=== PATIENT | male | born 1940 | race Caucasian/White ===

== ENCOUNTER 2018-08-04 10:07 | Inpatient (IN) ==
[2018-08-04] MEDS ORDERED: DILTIAZEM 50 MG/10 ML VIAL IV STA (10:35)
[2018-08-04 10:51] LABS: Basophils % 0.5 % (0.0-0.8); Eosinophils # 0.1 10*3/uL (0.0-0.87); Eosinophils % 0.6 % (0.00-10.9); Hematocrit 48.9 VOL% (42.0-52.0); Hemoglobin 16.8 GM/DL (14.0-18.0); Immature Granulocytes % 0.5 %; Immature Granulocytes Absolute 0.04 #; Lymphocytes # 1.9 10*3/uL (1.4-4.0); Lymphocytes % 21.2 % (21.2-54.2); Mean Corpuscular HGB Conc 34.4 GM/DL (32-36); Mean Corpuscular Hemoglobin 31 PG (27-34); Mean Corpuscular Volume 89.2 FL (87-102); Mean Platelet Volume 10.7 FL (9.6-12.0); Monocytes # 0.6 10*3/uL (0.11-0.8); Monocytes % 7.1 % (1.7-12.7); Neutrophils # 6.2 10*3/uL (1.4-7.4); Neutrophils % 70.1 % (38.7-73.9); Platelet Count 197 T/CUMM (130-400); Red Blood Count 5.48 MC/CUMM (3.8-5.5); White Blood Count 8.9 T/CUMM (4-12)
[2018-08-04] MEDS ORDERED: DILTIAZEM INJ 100 MG in SODIUM CHLORIDE 0.9% 100 ML IV SCH (11:00)
[2018-08-04 11:05] LABS: Partial Thromboplastin Time 27.5 SECS (0-40)
[2018-08-04 11:30] LABS: Albumin 3.6 G/DL (3.4-5.0); Bilirubin,Total 0.5 MG/DL (0.2-1.0); Osmolality,Calculated 279.4 MOS/KG (273-304); Potassium 3.7 MMOL/L (3.5-5.1); Total Protein 7.2 G/DL (6.4-8.3)
[2018-08-04 13:22] LABS: Risk Ratio 3.27; VLDL CHOLESTEROL 25.8 MG/DL
[2018-08-04] MEDS ORDERED: INFLUENZA VIRUS VACCINE 0.5 ML SYRINGE IM ONE (14:13)
[2018-08-04] MEDS ORDERED: POTASSIUM CHLORIDE 20 MEQ TABLET PO ONE (14:16)
[2018-08-04] MEDS: SODIUM CHLORIDE 0.45% 1,000 ML IV SCH ×2 (16:17→20:41)
[2018-08-04] MEDS: DILTIAZEM 30 MG TABLET PO SCH ×2 (17:37→20:41)
[2018-08-04] MEDS: ENOXAPARIN 100 MG/ML SYRINGE SUBCUT SCH (17:37)
[2018-08-04] MEDS: PHENAZOPYRIDINE 95 MG TABLET PO SCH (17:37)
[2018-08-04] MEDS: DORZOLAMIDE/TIMOLOL OPH SOLN 10 ML BOTTLE LEFT EYE SCH (20:42)
[2018-08-04] MEDS ORDERED: LATANOPROST 0.005% OPH SOLN 2.5 ML BOTTLE LEFT EYE SCH (21:00)
[2018-08-05] MEDS: ENOXAPARIN 100 MG/ML SYRINGE SUBCUT SCH (04:46)
[2018-08-05 06:09] LABS: Basophils % 0.5 % (0.0-0.8); Eosinophils # 0.1 10*3/uL (0.0-0.87); Eosinophils % 1.6 % (0.00-10.9); Hematocrit 42.3 VOL% (42.0-52.0); Hemoglobin 14.3 GM/DL (14.0-18.0); Immature Granulocytes % 0.3 %; Immature Granulocytes Absolute 0.02 #; Lymphocytes # 2.4 10*3/uL (1.4-4.0); Lymphocytes % 31.5 % (21.2-54.2); Mean Corpuscular HGB Conc 33.8 GM/DL (32-36); Mean Corpuscular Hemoglobin 31 PG (27-34); Mean Corpuscular Volume 91.8 FL (87-102); Mean Platelet Volume 11.5 FL (9.6-12.0); Monocytes # 0.5 10*3/uL (0.11-0.8); Neutrophils # 4.6 10*3/uL (1.4-7.4); Neutrophils % 59.1 % (38.7-73.9); Platelet Count 168 T/CUMM (130-400); Red Blood Count 4.61 MC/CUMM (3.8-5.5); Red Cell Distribution Width 13.3 % (9.3-17.3); White Blood Count 7.7 T/CUMM (4-12)
[2018-08-05 06:24] LABS: Calcium 8.2 MG/DL (8.5-10.1); Osmolality,Calculated 280.3 MOS/KG (273-304); Potassium 3.6 MMOL/L (3.5-5.1)
[2018-08-05 08:04] VITALS: BP 129/72
[2018-08-05] MEDS: DILTIAZEM 30 MG TABLET PO SCH (08:49)
[2018-08-05] MEDS: PHENAZOPYRIDINE 95 MG TABLET PO SCH ×2 (08:49→12:38)
[2018-08-05] MEDS: DORZOLAMIDE/TIMOLOL OPH SOLN 10 ML BOTTLE LEFT EYE SCH (08:52)
[2018-08-05] MEDS ORDERED: EZETIMIBE 10 MG TABLET PO SCH (09:00)
[2018-08-05] MEDS ORDERED: TAMSULOSIN 0.4 MG CAPSULE PO SCH (09:00)
[2018-08-05] MEDS ORDERED: hydroCHLOROthiazide 12.5 MG CAPSULE PO SCH (09:00)
[2018-08-05] MEDS ORDERED: ASPIRIN EC 81 MG TABLET PO SCH (09:00)
[2018-08-05] MEDS ORDERED: PANTOPRAZOLE 40 MG TABLET PO SCH (09:00)
[2018-08-05] MEDS ORDERED: amLODIPine 5 MG TABLET PO SCH (09:00)
[2018-08-06] MEDS ORDERED: DILTIAZEM CD 120 MG CAPSULE PO SCH (09:00)
== END 2018-08-05 12:40 | disposition home or self-care (01) | DRG 310 ==
LOC: N.ED 10:07 → N.EDINP 12:47 → N.TELEN 14:09
PROVIDERS: ADMIT Internal Medicine; ATTEND Internal Medicine

== ENCOUNTER 2019-02-24 13:34 | Inpatient (IN) ==
[2019-02-24] MEDS ORDERED: DILTIAZEM 50 MG/10 ML VIAL IV STA (14:22)
[2019-02-24] MEDS ORDERED: DILTIAZEM 25 MG/5 ML VIAL IV ONE (14:28)
[2019-02-24] MEDS ORDERED: dilTIAZem Drip 125 MG/125 ML PREMIX IV SCH (14:30)
[2019-02-24 14:40] LABS: Basophils % 0.4 % (0.0-0.8); Eosinophils # 0.1 10*3/uL (0.0-0.87); Eosinophils % 1.9 % (0.00-10.9); Hematocrit 46.8 VOL% (42.0-52.0); Hemoglobin 15.8 GM/DL (14.0-18.0); Immature Granulocytes % 0.3 %; Immature Granulocytes Absolute 0.02 #; Lymphocytes # 1.5 10*3/uL (1.4-4.0); Lymphocytes % 21.3 % (21.2-54.2); Mean Corpuscular HGB Conc 33.8 GM/DL (32-36); Mean Corpuscular Volume 91.2 FL (87-102); Mean Platelet Volume 11.8 FL (9.6-12.0); Monocytes % 7.6 % (1.7-12.7); Neutrophils % 68.5 % (38.7-73.9); Platelet Count 159 T/CUMM (130-400); Red Blood Count 5.13 MC/CUMM (3.8-5.5); Red Cell Distribution Width 13.2 % (9.3-17.3); White Blood Count 6.9 T/CUMM (4-12)
[2019-02-24 14:59] LABS: Albumin 3.5 G/DL (3.4-5.0); Bilirubin,Total 0.4 MG/DL (0.2-1.0); Calcium 8.6 MG/DL (8.5-10.1); Osmolality,Calculated 284.1 MOS/KG (273-304); Total Protein 6.6 G/DL (6.4-8.3)
[2019-02-24] MEDS ORDERED: SOTALOL 80 MG TABLET PO STA (17:12)
[2019-02-24] MEDS ORDERED: MAGNESIUM SULF RIDER 4 GM in PREMIX 1 EACH IV PRN (17:13)
[2019-02-24] MEDS ORDERED: MAGNESIUM SULF RIDER 2 GM in PREMIX 1 EACH IV PRN (17:13)
[2019-02-24] MEDS ORDERED: LATANOPROST 0.005% OPH SOLN 2.5 ML BOTTLE LEFT EYE SCH (21:00)
[2019-02-24] MEDS ORDERED: TAMSULOSIN 0.4 MG CAPSULE PO SCH (21:00)
[2019-02-24] MEDS ORDERED: SERTRALINE 25 MG TABLET PO SCH (21:00)
[2019-02-24] MEDS: APIXABAN 5 MG TABLET PO SCH (21:22)
[2019-02-24] MEDS: DORZOLAMIDE/TIMOLOL OPH SOLN 10 ML BOTTLE LEFT EYE SCH (21:23)
[2019-02-24] MEDS: SOTALOL 80 MG TABLET PO SCH (22:09)
[2019-02-25] MEDS: APIXABAN 5 MG TABLET PO SCH (08:51)
[2019-02-25] MEDS: PANTOPRAZOLE 40 MG TABLET PO SCH ×2 (08:51→08:54)
[2019-02-25] MEDS: DORZOLAMIDE/TIMOLOL OPH SOLN 10 ML BOTTLE LEFT EYE SCH (08:56)
[2019-02-25] MEDS ORDERED: FINASTERIDE 5 MG TABLET PO SCH (09:00)
[2019-02-25] MEDS ORDERED: POTASSIUM GLUCONATE 500 MG TABLET PO SCH (09:00)
[2019-02-25] MEDS: SOTALOL 80 MG TABLET PO SCH (11:23)
[2019-02-25] MEDS ORDERED: DILTIAZEM CD 120 MG CAPSULE PO SCH (12:00)
[2019-02-25] MEDS ORDERED: ASCORBIC ACID 500 MG TABLET PO SCH (12:00)
[2019-02-25 12:11] VITALS: BP 135/73
== END 2019-02-25 12:35 | disposition home or self-care (01) | DRG 310 ==
LOC: N.ED 13:34 → N.EDINP 17:13 → N.TELEN 17:31
PROVIDERS: ADMIT Internal Medicine Cardiovascular Disease; ATTEND Internal Medicine Cardiovascular Disease